=== PATIENT | male | born 1955 | race Caucasian/White ===

== ENCOUNTER 2022-06-14 18:33 | Emergency (ER) | payer MEDICARE ==
[~2022-06-14] VITALS: Ht 175.3 cm; Wt 72.7 kg
[~2022-06-14 18:33] MED LIST: NO HOME MEDICATIONS
[2022-06-14 18:36] VITALS: BP 168/63; TEMP 98.1
[2022-06-14 19:35] VITALS: PULSE 64
== END 2022-06-14 19:35 | disposition home or self-care (01) ==
LOC: COL.ER 18:33
DX: S05.02XA Injury of conjunctiva and corneal abrasion without foreign body, left eye, initial encounter (principal); X58.XXXA Exposure to other specified factors, initial encounter